=== PATIENT | male | born 1965 | race Caucasian/White ===

== ENCOUNTER 2020-05-18 11:03 | Inpatient (IN) ==
[2020-05-18] MEDS ORDERED: NS 0.9% 1000 ml BAG 1,000 ML IV ONE (11:57)
[2020-05-18 12:06] LABS: ABS Basophils 0.1 10^3/ul (0-0.2); ABS Eosinophils 0.3 10^3/ul (0-0.6); ABS Lymphocytes 0.4 10^3/ul (1.0-4.8); ABS Monocytes 0.5 10^3/ul (0-0.8); Hematocrit 28 % (42-52); Hemoglobin 8.3 g/dL (14.0-18.0); Mean Corpuscular HGB Conc 30 g/dL (31-36); Mean Corpuscular Hemoglobin 26 pg (27-31); Mean Corpuscular Volume 84 fL (80-94); Mean Platelet Volume 7.6 fL (7.4-10.4); Nucleated Red Blood Cells % 0.2; Platelet Count 388 10^3/uL (150-450); Red Blood Count 3.27 10^6 /uL (4.18-5.48); Red Cell Distribution Width 21 % (10-15); White Blood Count 7.4 10^3/uL (3.5-10.8)
[2020-05-18 12:17] LABS: Albumin 3.6 g/dL (3.2-5.2); Albumin/Globulin Ratio 1.1 (1-3); Calcium 8.1 mg/dL (8.6-10.3); EGFR African American 18.3 (>60); EGFR Non-African American 15.1 (>60); Globulin 3.3 g/dL (2-4); Potassium 4.3 mmol/L (3.5-5.0); Total Bilirubin 1.1 mg/dL (0.2-1.0); Total Protein 6.9 g/dL (6.4-8.9)
[2020-05-18 12:21] LABS: INR 1.6 (0.82-1.09)
[2020-05-18 12:40] LABS: BUN/Creatinine Ratio 35.9 (8-20)
[2020-05-18] MEDS ORDERED: Lactated Ringers 1000 ml BAG 1,000 ML IV ONE (13:08)
[2020-05-18 14:57] LABS: Digoxin 1.3 ng/ml (0.8-2.0)
[2020-05-18] MEDS: cefTRIAXone 1 gm/50 mL NS BAG 1 GM/50 ML BAG IVPB SCH (17:09)
[2020-05-18] MEDS: Nystatin TOP POWDER 15 GM BTL TOPICAL SCH ×2 (17:52→21:25)
[2020-05-18 17:54] LABS: Hematocrit 27 % (42-52); Hemoglobin 8.2 g/dL (14.0-18.0)
[2020-05-18 18:05] LABS: Calcium 7.9 mg/dL (8.6-10.3); EGFR African American 18.5 (>60); EGFR Non-African American 15.3 (>60); Potassium 4.2 mmol/L (3.5-5.0)
[2020-05-18] MEDS ORDERED: Dextrose 50% Syringe 50 ml 25 GM/50 ML SYRINGE IV PUSH PRN (18:09)
[2020-05-18 18:30] LABS: BUN/Creatinine Ratio 33.8 (8-20)
[2020-05-18 19:33] LABS: TSH Ultra Thyroid Stim Horm 1.4 mcIU/mL (0.34-5.60)
[2020-05-18] MEDS: Pantoprazole VIAL 40 MG VIAL IV SCH (22:53)
[2020-05-18 23:31] LABS: Urine Appearance Turbid; Urine Bilirubin Negative (Negative); Urine Blood 2+ (Negative); Urine Color Amber; Urine Glucose Negative (Negative); Urine Ketones Negative (Negative); Urine Nitrite Positive (Negative); Urine Protein 2+(100 mg/dL) (Negative); Urine Specific Gravity 1.012 (1.002-1.030); Urine Urobilinogen Negative (Negative)
[2020-05-18 23:37] LABS: Urine Bacteria Absent (Absent); Urine Red Blood Cell 1+(3-5/hpf) (Absent); Urine White Blood Cell 3+(>20/hpf) (Absent)
[2020-05-19] MEDS ORDERED: NS 0.9% 500 ml BAG 500 ML IV ONE (03:21)
[2020-05-19 05:01] LABS: ABS Basophils 0.1 10^3/ul (0-0.2); ABS Eosinophils 0.4 10^3/ul (0-0.6); ABS Lymphocytes 0.5 10^3/ul (1.0-4.8); ABS Monocytes 0.5 10^3/ul (0-0.8); ABS Neutrophils 6.5 10^3/ul (1.5-7.7); Hematocrit 24 % (42-52); Hemoglobin 7.6 g/dL (14.0-18.0); Lymphocyte % 5.8 %; Mean Corpuscular HGB Conc 31 g/dL (31-36); Mean Corpuscular Hemoglobin 26 pg (27-31); Mean Corpuscular Volume 84 fL (80-94); Mean Platelet Volume 7.3 fL (7.4-10.4); Platelet Count 309 10^3/uL (150-450); Red Blood Count 2.91 10^6 /uL (4.18-5.48); Red Cell Distribution Width 21 % (10-15); White Blood Count 7.9 10^3/uL (3.5-10.8)
[2020-05-19 05:21] LABS: AST 12 U/L (13-39); Albumin 3.2 g/dL (3.2-5.2); Albumin/Globulin Ratio 1.1 (1-3); Alkaline Phosphatase 87 U/L (34-104); Anion Gap 11 mmol/L (2-11); CO2 Carbon Dioxide 26 mmol/L (22-32); Calcium 7.4 mg/dL (8.6-10.3); Chloride 103 mmol/L (101-111); EGFR African American 19.7 (>60); EGFR Non-African American 16.3 (>60); Globulin 2.9 g/dL (2-4); Glucose 83 mg/dL (70-100); Magnesium 2.8 mg/dL (1.9-2.7); Phosphorus 6.4 mg/dL (2.5-5.0); Potassium 3.9 mmol/L (3.5-5.0); Sodium 140 mmol/L (135-145); Total Protein 6.1 g/dL (6.4-8.9)
[2020-05-19] MEDS: cefTRIAXone 1 gm/50 mL NS BAG 1 GM/50 ML BAG IVPB SCH ×2 (05:25→17:21)
[2020-05-19 05:39] LABS: BUN/Creatinine Ratio 36.4 (8-20); Blood Urea Nitrogen 141 mg/dL (6-24)
[2020-05-19 05:57] LABS: ALT 15 U/L (7-52)
[2020-05-19] MEDS: Nystatin TOP POWDER 15 GM BTL TOPICAL SCH ×3 (08:00→21:54)
[2020-05-19] MEDS: Pantoprazole VIAL 40 MG VIAL IV SCH (08:00)
[2020-05-19 10:03] LABS: Troponin I 0.03 ng/mL (<0.03)
[2020-05-20] MEDS: cefTRIAXone 1 gm/50 mL NS BAG 1 GM/50 ML BAG IVPB SCH (05:30)
[2020-05-20] MEDS: Nystatin TOP POWDER 15 GM BTL TOPICAL SCH ×3 (08:18→21:11)
[2020-05-20] MEDS: Pantoprazole VIAL 40 MG VIAL IV SCH (08:20)
[2020-05-20] MEDS: Insulin GLARGINE 100 un/ml 10 ml VIAL SUBCUT SCH (08:40)
[2020-05-20] MEDS: Oxymetazoline 0.05% NASAL SPR 15 ML BTL LEFT NARE PRN (08:45)
[2020-05-20 08:54] LABS: Hematocrit 26 % (42-52); Hemoglobin 7.7 g/dL (14.0-18.0); Mean Corpuscular HGB Conc 29 g/dL (31-36); Mean Corpuscular Hemoglobin 25 pg (27-31); Mean Corpuscular Volume 85 fL (80-94); Mean Platelet Volume 7.6 fL (7.4-10.4); Platelet Count 315 10^3/uL (150-450); Red Blood Count 3.07 10^6 /uL (4.18-5.48); Red Cell Distribution Width 21 % (10-15); White Blood Count 7.7 10^3/uL (3.5-10.8)
[2020-05-20 09:02] LABS: Anion Gap 12 mmol/L (2-11); BUN/Creatinine Ratio 35.2 (8-20); Blood Urea Nitrogen 128 mg/dL (6-24); CO2 Carbon Dioxide 26 mmol/L (22-32); Calcium 7.7 mg/dL (8.6-10.3); Chloride 101 mmol/L (101-111); EGFR African American 21.1 (>60); EGFR Non-African American 17.5 (>60); Glucose 105 mg/dL (70-100); Magnesium 2.8 mg/dL (1.9-2.7); Phosphorus 6.1 mg/dL (2.5-5.0); Sodium 139 mmol/L (135-145)
[2020-05-20 09:25] LABS: Troponin I 0.03 ng/mL (<0.03)
[2020-05-20] MEDS: Saline NASAL SPRAY 0.65% BTL BOTH NARES SCH ×4 (10:37→21:12)
[2020-05-20] MEDS ORDERED: Zosyn per Pharmacy NOTE FOLLOW UP SCH (12:00)
[2020-05-20] MEDS ORDERED: Piperacillin/Tazobac ADVAN 3.375 GM in NS 0.9% 100 ml BAG 100 ML IV ONE (12:45)
[2020-05-20] MEDS: ZOSYN 3.375 GM Q8H per EXTENDED INFUSION IV SCH (18:15)
[2020-05-21] MEDS: Saline NASAL SPRAY 0.65% BTL BOTH NARES SCH ×6 (01:41→22:42)
[2020-05-21] MEDS: ZOSYN 3.375 GM Q8H per EXTENDED INFUSION IV SCH ×3 (01:42→17:17)
[2020-05-21] MEDS: Insulin GLARGINE 100 un/ml 10 ml VIAL SUBCUT SCH (09:22)
[2020-05-21 09:24] LABS: % Iron Saturation 13 % (15-55); Iron 26 ug/dL (50-212); Total Iron Binding Capacity 197 mcg/dL (250-450); Transferrin 141 mg/dL (203-362); Unsaturated Iron Binding < 182 ug/dL
[2020-05-21] MEDS: Nystatin TOP POWDER 15 GM BTL TOPICAL SCH ×3 (09:41→22:37)
[2020-05-22] MEDS: Saline NASAL SPRAY 0.65% BTL BOTH NARES SCH ×6 (02:00→20:48)
[2020-05-22 05:22] LABS: Calcium 7.9 mg/dL (8.6-10.3); EGFR Non-African American 16.5 (>60); Magnesium 2.8 mg/dL (1.9-2.7)
[2020-05-22] MEDS: Insulin GLARGINE 100 un/ml 10 ml VIAL SUBCUT SCH (08:45)
[2020-05-22] MEDS: Nystatin TOP POWDER 15 GM BTL TOPICAL SCH ×3 (08:46→20:48)
[2020-05-22] MEDS ORDERED: ZOSYN 3.375 GM x ONE DOSE over 30 miuntes IV (13:00)
[2020-05-22] MEDS ORDERED: Zosyn per Pharmacy NOTE FOLLOW UP SCH (13:00)
[2020-05-22] MEDS: ZOSYN 3.375 GM Q8H per EXTENDED INFUSION IV SCH (17:58)
[2020-05-22] MEDS ORDERED: Heparin 5000 UNITS/ML 1 mL VIAL IV SCH (19:00)
[2020-05-22] MEDS ORDERED: Warfarin per PHARMACY **NOTE FOLLOW UP SCH (19:00)
[2020-05-22] MEDS: Heparin DRIP 25,000 UNITS BAG 25,000 UNITS/500 ML BAG IV SCH (19:51)
[2020-05-23] MEDS: Saline NASAL SPRAY 0.65% BTL BOTH NARES SCH ×6 (01:46→20:59)
[2020-05-23] MEDS: ZOSYN 3.375 GM Q8H per EXTENDED INFUSION IV SCH ×3 (01:57→20:34)
[2020-05-23] MEDS: Insulin GLARGINE 100 un/ml 10 ml VIAL SUBCUT SCH (08:15)
[2020-05-23 08:34] LABS: ABS Basophils 0.1 10^3/ul (0-0.2); ABS Eosinophils 0.6 10^3/ul (0-0.6); ABS Lymphocytes 0.5 10^3/ul (1.0-4.8); ABS Monocytes 0.4 10^3/ul (0-0.8); ABS Neutrophils 5.4 10^3/ul (1.5-7.7); Eosinophil % 8.4 %; Hematocrit 24 % (42-52); Hemoglobin 7.5 g/dL (14.0-18.0); Lymphocyte % 7.1 %; Mean Corpuscular HGB Conc 31 g/dL (31-36); Mean Corpuscular Hemoglobin 26 pg (27-31); Mean Corpuscular Volume 84 fL (80-94); Mean Platelet Volume 7.7 fL (7.4-10.4); Nucleated Red Blood Cells % 0.1; Platelet Count 302 10^3/uL (150-450); Red Blood Count 2.91 10^6 /uL (4.18-5.48); Red Cell Distribution Width 21 % (10-15)
[2020-05-23 08:39] LABS: Activated Partial Thrombo Time 99.2 seconds (26.0-38.0); INR 1.49 (0.82-1.09)
[2020-05-23 08:48] LABS: BUN/Creatinine Ratio 32.5 (8-20); Calcium 7.9 mg/dL (8.6-10.3); EGFR African American 20.8 (>60); EGFR Non-African American 17.2 (>60); Potassium 3.8 mmol/L (3.5-5.0)
[2020-05-23] MEDS: Heparin DRIP 25,000 UNITS BAG 25,000 UNITS/500 ML BAG IV SCH (09:42)
[2020-05-23] MEDS: Nystatin TOP POWDER 15 GM BTL TOPICAL SCH ×3 (09:57→20:59)
[2020-05-23] MEDS ORDERED: Warfarin - No Order Today **NOTE FOLLOW UP ONE (16:00)
[2020-05-23] MEDS ORDERED: Bupivacaine 0.5% SDV PF 30ML VIAL ONE (16:27)
[2020-05-23] MEDS ORDERED: Albumin Human 25% 25 GM/100 ML BTL IV PRN (16:35)
[2020-05-23] MEDS ORDERED: Midazolam 2 mg/2 ml VIAL 1 mg/ml 2 ml VIAL (2 mg) ONE (16:39)
[2020-05-23] MEDS ORDERED: fentaNYL 100 mcg/2 ml 50 MCG/ML VIAL ONE (16:39)
[2020-05-23] MEDS ORDERED: Heparin 1,000 UNIT/ML 10 ml (10,000 UNITS) CATHLAB/DIALYSIS DIALYSIS ONE (17:00)
[2020-05-23] MEDS: Heparin 1,000 UNIT/ML 10 ml (10,000 UNITS) CATHLAB/DIALYSIS DIALYSIS ONE (18:37)
[2020-05-23] MEDS: Warfarin DAILY REMINDER **NOTE FOLLOW UP SCH (19:20)
[2020-05-23] MEDS: Calcium Carb (TUMS) 500 mg CHEW TAB PO SCH (23:12)
[2020-05-24] MEDS: Saline NASAL SPRAY 0.65% BTL BOTH NARES SCH ×6 (00:30→21:59)
[2020-05-24] MEDS: ZOSYN 3.375 GM Q8H per EXTENDED INFUSION IV SCH ×3 (01:04→18:05)
[2020-05-24 06:10] LABS: ABS Basophils 0.1 10^3/ul (0-0.2); ABS Eosinophils 0.5 10^3/ul (0-0.6); ABS Lymphocytes 0.4 10^3/ul (1.0-4.8); ABS Monocytes 0.4 10^3/ul (0-0.8); ABS Neutrophils 4.5 10^3/ul (1.5-7.7); Eosinophil % 8.9 %; Hematocrit 26 % (42-52); Hemoglobin 7.7 g/dL (14.0-18.0); Lymphocyte % 6.9 %; Mean Corpuscular HGB Conc 30 g/dL (31-36); Mean Corpuscular Hemoglobin 26 pg (27-31); Mean Corpuscular Volume 85 fL (80-94); Platelet Count 309 10^3/uL (150-450); Red Cell Distribution Width 21 % (10-15)
[2020-05-24 06:24] LABS: BUN/Creatinine Ratio 29.5 (8-20); Calcium 7.9 mg/dL (8.6-10.3); EGFR African American 21.5 (>60); EGFR Non-African American 17.7 (>60); Potassium 3.8 mmol/L (3.5-5.0)
[2020-05-24 06:27] LABS: INR 1.44 (0.82-1.09)
[2020-05-24] MEDS: Calcium Carb (TUMS) 500 mg CHEW TAB PO SCH ×3 (08:48→21:58)
[2020-05-24] MEDS ORDERED: NS 0.9% 250 ml 250 ML IVPB PRN (08:49)
[2020-05-24] MEDS: Insulin GLARGINE 100 un/ml 10 ml VIAL SUBCUT SCH (08:49)
[2020-05-24] MEDS: Nystatin TOP POWDER 15 GM BTL TOPICAL SCH ×3 (08:50→21:59)
[2020-05-24] MEDS ORDERED: Albumin Human 25% 25 GM/100 ML IV PRN (08:52)
[2020-05-24] MEDS ORDERED: Heparin 1,000 UNIT/ML 10 ml (10,000 UNITS) CATHLAB/DIALYSIS DIALYSIS ONE (09:00)
[2020-05-24] MEDS ORDERED: Heparin 5000 UNITS/ML 1 mL VIAL IV SCH (10:00)
[2020-05-24] MEDS ORDERED: Perflutren Lipid Microsphere 3 ML VIAL ONE (10:50)
[2020-05-24 12:25] LABS: ABS Basophils 0.1 10^3/ul (0-0.2); ABS Eosinophils 0.5 10^3/ul (0-0.6); ABS Lymphocytes 0.3 10^3/ul (1.0-4.8); ABS Monocytes 0.4 10^3/ul (0-0.8); ABS Neutrophils 4.6 10^3/ul (1.5-7.7); Eosinophil % 8.2 %; Hematocrit 26 % (42-52); Hemoglobin 7.7 g/dL (14.0-18.0); Lymphocyte % 5.4 %; Mean Corpuscular HGB Conc 30 g/dL (31-36); Mean Corpuscular Hemoglobin 26 pg (27-31); Mean Corpuscular Volume 85 fL (80-94); Mean Platelet Volume 7.6 fL (7.4-10.4); Platelet Count 316 10^3/uL (150-450); Red Blood Count 3.02 10^6 /uL (4.18-5.48); Red Cell Distribution Width 21 % (10-15)
[2020-05-24] MEDS: Heparin DRIP 25,000 UNITS BAG 25,000 UNITS/500 ML BAG IV SCH (12:40)
[2020-05-24 12:46] LABS: EGFR African American 26.4 (>60); EGFR Non-African American 21.8 (>60)
[2020-05-24] MEDS: Warfarin DAILY REMINDER **NOTE FOLLOW UP SCH (17:12)
[2020-05-25] MEDS: Heparin DRIP 25,000 UNITS BAG 25,000 UNITS/500 ML BAG IV SCH ×2 (00:34→13:36)
[2020-05-25] MEDS: Saline NASAL SPRAY 0.65% BTL BOTH NARES SCH ×6 (02:29→22:34)
[2020-05-25] MEDS: ZOSYN 3.375 GM Q8H per EXTENDED INFUSION IV SCH ×3 (02:29→17:55)
[2020-05-25 09:04] LABS: ABS Basophils 0.1 10^3/ul (0-0.2); ABS Eosinophils 0.6 10^3/ul (0-0.6); ABS Lymphocytes 0.4 10^3/ul (1.0-4.8); ABS Monocytes 0.5 10^3/ul (0-0.8); ABS Neutrophils 5.5 10^3/ul (1.5-7.7); Eosinophil % 8.4 %; Hematocrit 26 % (42-52); Hemoglobin 7.7 g/dL (14.0-18.0); Lymphocyte % 6.2 %; Mean Corpuscular HGB Conc 30 g/dL (31-36); Mean Corpuscular Hemoglobin 25 pg (27-31); Mean Corpuscular Volume 85 fL (80-94); Mean Platelet Volume 7.6 fL (7.4-10.4); Platelet Count 326 10^3/uL (150-450); Red Blood Count 3.02 10^6 /uL (4.18-5.48); Red Cell Distribution Width 21 % (10-15); White Blood Count 7.1 10^3/uL (3.5-10.8)
[2020-05-25] MEDS: Calcium Carb (TUMS) 500 mg CHEW TAB PO SCH ×3 (09:09→22:30)
[2020-05-25] MEDS: Insulin GLARGINE 100 un/ml 10 ml VIAL SUBCUT SCH (09:09)
[2020-05-25] MEDS: Nystatin TOP POWDER 15 GM BTL TOPICAL SCH ×3 (09:10→22:34)
[2020-05-25] MEDS: Oxymetazoline 0.05% NASAL SPR 15 ML BTL LEFT NARE PRN (09:10)
[2020-05-25 09:12] LABS: Activated Partial Thrombo Time 69.1 seconds (26.0-38.0); INR 1.52 (0.82-1.09)
[2020-05-25 09:19] LABS: BUN/Creatinine Ratio 25.6 (8-20); Calcium 8.1 mg/dL (8.6-10.3); EGFR Non-African American 18.2 (>60); Potassium 3.9 mmol/L (3.5-5.0)
[2020-05-25] MEDS ORDERED: Heparin 1,000 UNIT/ML 10 ml (10,000 UNITS) CATHLAB/DIALYSIS DIALYSIS ONE (11:00)
[2020-05-25] MEDS: Albumin Human 25% 25 GM/100 ML IV PRN ×2 (12:10→13:26)
[2020-05-25 13:58] LABS: % Iron Saturation 12 % (15-55); Iron 24 ug/dL (50-212); Total Iron Binding Capacity 193 mcg/dL (250-450); Transferrin 138 mg/dL (203-362); Unsaturated Iron Binding < 178 ug/dL
[2020-05-25 16:11] LABS: Hepatitis B Surface Antigen Nonreactive (Nonreactive)
[2020-05-25 16:28] LABS: Hepatitis B Surface Ab Not Immune (Immune)
[2020-05-25] MEDS: Warfarin DAILY REMINDER **NOTE FOLLOW UP SCH (18:01)
[2020-05-25] MEDS: Bumetanide IV 0.25 MG/ML 4 ml VIAL (1 mg) SLOW PUSH SCH (22:31)
[2020-05-26] MEDS: Heparin DRIP 25,000 UNITS BAG 25,000 UNITS/500 ML BAG IV SCH (02:13)
[2020-05-26] MEDS: Saline NASAL SPRAY 0.65% BTL BOTH NARES SCH ×6 (02:15→23:56)
[2020-05-26 05:52] LABS: ABS Basophils 0.1 10^3/ul (0-0.2); ABS Eosinophils 0.6 10^3/ul (0-0.6); ABS Lymphocytes 0.6 10^3/ul (1.0-4.8); ABS Monocytes 0.5 10^3/ul (0-0.8); ABS Neutrophils 6.1 10^3/ul (1.5-7.7); Eosinophil % 7.3 %; Hematocrit 24 % (42-52); Hemoglobin 7.3 g/dL (14.0-18.0); Lymphocyte % 7.2 %; Mean Corpuscular HGB Conc 30 g/dL (31-36); Mean Corpuscular Hemoglobin 25 pg (27-31); Mean Corpuscular Volume 84 fL (80-94); Mean Platelet Volume 7.2 fL (7.4-10.4); Nucleated Red Blood Cells % 0.1; Platelet Count 322 10^3/uL (150-450); Red Blood Count 2.88 10^6 /uL (4.18-5.48); Red Cell Distribution Width 21 % (10-15); White Blood Count 7.9 10^3/uL (3.5-10.8)
[2020-05-26 06:01] LABS: Activated Partial Thrombo Time 66.4 seconds (26.0-38.0); INR 1.7 (0.82-1.09)
[2020-05-26 06:10] LABS: EGFR African American 24.9 (>60); EGFR Non-African American 20.6 (>60)
[2020-05-26] MEDS: Calcium Carb (TUMS) 500 mg CHEW TAB PO SCH ×3 (08:33→22:07)
[2020-05-26] MEDS: Insulin GLARGINE 100 un/ml 10 ml VIAL SUBCUT SCH (08:40)
[2020-05-26] MEDS: Nystatin TOP POWDER 15 GM BTL TOPICAL SCH ×3 (08:41→23:30)
[2020-05-26] MEDS: Iron Sucrose 200 MG in NS 0.9% 100 ml BAG 100 ML IVPB SCH (08:47)
[2020-05-26] MEDS: Bumetanide IV 0.25 MG/ML 4 ml VIAL (1 mg) SLOW PUSH SCH ×2 (12:24→22:39)
[2020-05-26] MEDS ORDERED: Albumin Human 25% 25 GM/100 ML BTL IV PRN (16:41)
[2020-05-26] MEDS ORDERED: Heparin 1,000 UNIT/ML 10 ml (10,000 UNITS) CATHLAB/DIALYSIS DIALYSIS ONE (17:00)
[2020-05-26] MEDS: Warfarin DAILY REMINDER **NOTE FOLLOW UP SCH (22:08)
[2020-05-27] MEDS: Heparin DRIP 25,000 UNITS BAG 25,000 UNITS/500 ML BAG IV SCH ×2 (03:06→18:39)
[2020-05-27] MEDS: Saline NASAL SPRAY 0.65% BTL BOTH NARES SCH ×6 (03:39→20:30)
[2020-05-27 05:35] LABS: ABS Basophils 0.2 10^3/ul (0-0.2); ABS Eosinophils 0.5 10^3/ul (0-0.6); ABS Lymphocytes 0.6 10^3/ul (1.0-4.8); ABS Monocytes 0.5 10^3/ul (0-0.8); ABS Neutrophils 5.4 10^3/ul (1.5-7.7); Hematocrit 25 % (42-52); Hemoglobin 7.7 g/dL (14.0-18.0); Lymphocyte % 8.3 %; Mean Corpuscular HGB Conc 30 g/dL (31-36); Mean Corpuscular Hemoglobin 26 pg (27-31); Mean Corpuscular Volume 85 fL (80-94); Mean Platelet Volume 7.7 fL (7.4-10.4); Platelet Count 323 10^3/uL (150-450); Red Blood Count 2.98 10^6 /uL (4.18-5.48); Red Cell Distribution Width 22 % (10-15); White Blood Count 7.2 10^3/uL (3.5-10.8)
[2020-05-27 05:48] LABS: Activated Partial Thrombo Time 66.7 seconds (26.0-38.0); INR 1.89 (0.82-1.09)
[2020-05-27] MEDS: Calcium Carb (TUMS) 500 mg CHEW TAB PO SCH ×3 (08:14→20:29)
[2020-05-27] MEDS: Insulin GLARGINE 100 un/ml 10 ml VIAL SUBCUT SCH (08:15)
[2020-05-27] MEDS: Bumetanide IV 0.25 MG/ML 4 ml VIAL (1 mg) SLOW PUSH SCH ×2 (08:19→20:30)
[2020-05-27] MEDS: Nystatin TOP POWDER 15 GM BTL TOPICAL SCH ×3 (08:21→20:32)
[2020-05-27] MEDS: Iron Sucrose 200 MG in NS 0.9% 100 ml BAG 100 ML IVPB SCH (08:56)
[2020-05-27] MEDS ORDERED: Ondansetron 4 mg VIAL 2 MG/ML 2 ml VIAL IV PRN (09:00)
[2020-05-27] MEDS ORDERED: Albumin Human 25% 25 GM/100 ML BTL IV PRN (13:15)
[2020-05-27] MEDS ORDERED: NS 0.9% 250 ml 250 ML IVPB PRN (13:18)
[2020-05-27] MEDS ORDERED: Heparin 1,000 UNIT/ML 10 ml (10,000 UNITS) CATHLAB/DIALYSIS IV ONE (14:00)
[2020-05-27] MEDS: Warfarin DAILY REMINDER **NOTE FOLLOW UP SCH (17:00)
[2020-05-28] MEDS: Saline NASAL SPRAY 0.65% BTL BOTH NARES SCH ×6 (01:30→22:57)
[2020-05-28 06:15] LABS: ABS Basophils 0.2 10^3/ul (0-0.2); ABS Eosinophils 0.5 10^3/ul (0-0.6); ABS Lymphocytes 0.6 10^3/ul (1.0-4.8); ABS Monocytes 0.6 10^3/ul (0-0.8); ABS Neutrophils 6.2 10^3/ul (1.5-7.7); Eosinophil % 6.3 %; Hematocrit 26 % (42-52); Hemoglobin 7.9 g/dL (14.0-18.0); Lymphocyte % 7.7 %; Mean Corpuscular HGB Conc 31 g/dL (31-36); Mean Corpuscular Hemoglobin 26 pg (27-31); Mean Corpuscular Volume 84 fL (80-94); Mean Platelet Volume 7.5 fL (7.4-10.4); Nucleated Red Blood Cells % 0.1; Platelet Count 349 10^3/uL (150-450); Red Blood Count 3.08 10^6 /uL (4.18-5.48); Red Cell Distribution Width 22 % (10-15); White Blood Count 8.1 10^3/uL (3.5-10.8)
[2020-05-28 06:32] LABS: EGFR African American 28.5 (>60); EGFR Non-African American 23.5 (>60)
[2020-05-28] MEDS: Calcium Carb (TUMS) 500 mg CHEW TAB PO SCH ×3 (08:03→20:04)
[2020-05-28] MEDS: Insulin GLARGINE 100 un/ml 10 ml VIAL SUBCUT SCH (08:04)
[2020-05-28] MEDS: Heparin DRIP 25,000 UNITS BAG 25,000 UNITS/500 ML BAG IV SCH ×2 (08:06→21:19)
[2020-05-28] MEDS: Nystatin TOP POWDER 15 GM BTL TOPICAL SCH ×3 (08:13→22:05)
[2020-05-28] MEDS: Bumetanide IV 0.25 MG/ML 4 ml VIAL (1 mg) SLOW PUSH SCH ×2 (09:01→20:04)
[2020-05-28] MEDS: Iron Sucrose 200 MG in NS 0.9% 100 ml BAG 100 ML IVPB SCH (09:01)
[2020-05-28 10:46] LABS: INR 2.4 (0.82-1.09)
[2020-05-28] MEDS: Warfarin DAILY REMINDER **NOTE FOLLOW UP SCH (16:37)
[2020-05-29] MEDS: Saline NASAL SPRAY 0.65% BTL BOTH NARES SCH ×6 (04:56→21:07)
[2020-05-29 05:36] LABS: ABS Basophils 0.1 10^3/ul (0-0.2); ABS Eosinophils 0.5 10^3/ul (0-0.6); ABS Lymphocytes 0.8 10^3/ul (1.0-4.8); ABS Monocytes 0.5 10^3/ul (0-0.8); ABS Neutrophils 6.8 10^3/ul (1.5-7.7); Eosinophil % 6.1 %; Hematocrit 27 % (42-52); Lymphocyte % 8.8 %; Mean Corpuscular HGB Conc 30 g/dL (31-36); Mean Corpuscular Hemoglobin 26 pg (27-31); Mean Corpuscular Volume 85 fL (80-94); Mean Platelet Volume 7.9 fL (7.4-10.4); Nucleated Red Blood Cells % 0.1; Platelet Count 386 10^3/uL (150-450); Red Blood Count 3.13 10^6 /uL (4.18-5.48); Red Cell Distribution Width 21 % (10-15); White Blood Count 8.7 10^3/uL (3.5-10.8)
[2020-05-29 05:41] LABS: INR 2.72 (0.82-1.09)
[2020-05-29] MEDS: Insulin GLARGINE 100 un/ml 10 ml VIAL SUBCUT SCH (08:09)
[2020-05-29] MEDS: Nystatin TOP POWDER 15 GM BTL TOPICAL SCH ×3 (08:10→21:07)
[2020-05-29] MEDS: Bumetanide IV 0.25 MG/ML 4 ml VIAL (1 mg) SLOW PUSH SCH ×2 (08:10→21:05)
[2020-05-29] MEDS: Calcium Carb (TUMS) 500 mg CHEW TAB PO SCH ×3 (08:10→21:06)
[2020-05-29] MEDS: Iron Sucrose 200 MG in NS 0.9% 100 ml BAG 100 ML IVPB SCH (10:06)
[2020-05-29] MEDS: Warfarin DAILY REMINDER **NOTE FOLLOW UP SCH (16:15)
[2020-05-30] MEDS: Saline NASAL SPRAY 0.65% BTL BOTH NARES SCH ×6 (03:36→21:02)
[2020-05-30 07:02] LABS: EGFR African American 22.9 (>60); EGFR Non-African American 18.9 (>60)
[2020-05-30 07:06] LABS: INR 2.77 (0.82-1.09)
[2020-05-30] MEDS: Insulin GLARGINE 100 un/ml 10 ml VIAL SUBCUT SCH (09:18)
[2020-05-30] MEDS: Calcium Carb (TUMS) 500 mg CHEW TAB PO SCH ×3 (10:38→21:01)
[2020-05-30] MEDS: Iron Sucrose 200 MG in NS 0.9% 100 ml BAG 100 ML IVPB SCH (10:39)
[2020-05-30] MEDS: Nystatin TOP POWDER 15 GM BTL TOPICAL SCH ×3 (10:51→21:03)
[2020-05-30] MEDS: Bumetanide IV 0.25 MG/ML 4 ml VIAL (1 mg) SLOW PUSH SCH ×2 (11:17→21:15)
[2020-05-30] MEDS ORDERED: Albumin Human 25% 25 GM/100 ML IV PRN ×2 (12:43→14:07)
[2020-05-30] MEDS ORDERED: Heparin 1,000 UNIT/ML 10 ml (10,000 UNITS) CATHLAB/DIALYSIS IV ONE (13:00)
[2020-05-30] MEDS: Heparin 1,000 UNIT/ML 10 ml (10,000 UNITS) CATHLAB/DIALYSIS DIALYSIS ONE (16:26)
[2020-05-30] MEDS: Warfarin DAILY REMINDER **NOTE FOLLOW UP SCH (18:08)
[2020-05-31] MEDS: Saline NASAL SPRAY 0.65% BTL BOTH NARES SCH ×6 (02:54→20:47)
[2020-05-31 06:56] LABS: INR 2.55 (0.82-1.09)
[2020-05-31] MEDS ORDERED: Albumin Human 25% 25 GM/100 ML IV PRN (06:58)
[2020-05-31] MEDS ORDERED: Heparin 1,000 UNIT/ML 10 ml (10,000 UNITS) CATHLAB/DIALYSIS DIALYSIS ONE (07:00)
[2020-05-31 07:08] LABS: BUN/Creatinine Ratio 12.4 (8-20); Calcium 8.6 mg/dL (8.6-10.3); EGFR Non-African American 20.6 (>60); Phosphorus 4.8 mg/dL (2.5-5.0); Potassium 4.3 mmol/L (3.5-5.0)
[2020-05-31] MEDS: Bumetanide IV 0.25 MG/ML 4 ml VIAL (1 mg) SLOW PUSH SCH (08:08)
[2020-05-31] MEDS: Calcium Carb (TUMS) 500 mg CHEW TAB PO SCH ×3 (08:08→20:47)
[2020-05-31] MEDS: Insulin GLARGINE 100 un/ml 10 ml VIAL SUBCUT SCH (08:10)
[2020-05-31] MEDS: Heparin 1,000 UNIT/ML 10 ml (10,000 UNITS) CATHLAB/DIALYSIS DIALYSIS ONE (11:43)
[2020-05-31] MEDS: Nystatin TOP POWDER 15 GM BTL TOPICAL SCH ×2 (12:43→13:27)
[2020-05-31] MEDS: Warfarin DAILY REMINDER **NOTE FOLLOW UP SCH (18:03)
[2020-06-01] MEDS: Saline NASAL SPRAY 0.65% BTL BOTH NARES SCH ×5 (01:52→17:43)
[2020-06-01 05:21] LABS: INR 2.48 (0.82-1.09)
[2020-06-01] MEDS: Calcium Carb (TUMS) 500 mg CHEW TAB PO SCH ×2 (07:54→13:02)
[2020-06-01] MEDS: Insulin GLARGINE 100 un/ml 10 ml VIAL SUBCUT SCH (08:40)
[2020-06-01] MEDS ORDERED: Albumin Human 25% 25 GM/100 ML IV PRN (11:42)
[2020-06-01] MEDS: Heparin 1,000 UNIT/ML 10 ml (10,000 UNITS) CATHLAB/DIALYSIS DIALYSIS ONE ×2 (13:01→16:37)
[2020-06-01 16:38] VITALS: BP 106/32
[2020-06-01] MEDS: Warfarin DAILY REMINDER **NOTE FOLLOW UP SCH (17:43)
== END 2020-06-01 17:45 | DRG 682 ==
LOC: ED 11:03 → ICU 12:59 → MEDTELE 05-20 13:19
PROVIDERS: ADMIT Internal Medicine; ATTEND Internal Medicine

== ENCOUNTER 2020-06-17 11:16 | Inpatient (IN) ==
[2020-06-17 11:49] LABS: ABS Basophils 0.2 10^3/ul (0-0.2); ABS Eosinophils 0.1 10^3/ul (0-0.6); ABS Lymphocytes 0.8 10^3/ul (1.0-4.8); ABS Monocytes 0.7 10^3/ul (0-0.8); ABS Neutrophils 9.6 10^3/ul (1.5-7.7); ABS Nucleated RBC 0.1 10^3/ul; Hematocrit 28 % (42-52); Hemoglobin 8.4 g/dL (14.0-18.0); Mean Corpuscular HGB Conc 31 g/dL (31-36); Mean Corpuscular Hemoglobin 26 pg (27-31); Mean Corpuscular Volume 86 fL (80-94); Mean Platelet Volume 7.1 fL (7.4-10.4); Nucleated Red Blood Cells % 0.6; Platelet Count 425 10^3/uL (150-450); Red Blood Count 3.21 10^6 /uL (4.18-5.48); Red Cell Distribution Width 21 % (10-15); White Blood Count 11.4 10^3/uL (3.5-10.8)
[2020-06-17 12:12] LABS: ALT 10 U/L (7-52); AST 20 U/L (13-39); Albumin 3.6 g/dL (3.2-5.2); Alkaline Phosphatase 83 U/L (34-104); Anion Gap 8 mmol/L (2-11); Blood Urea Nitrogen 27 mg/dL (6-24); CO2 Carbon Dioxide 32 mmol/L (22-32); Calcium 8.7 mg/dL (8.6-10.3); Chloride 92 mmol/L (101-111); EGFR African American 24.6 (>60); EGFR Non-African American 20.3 (>60); Globulin 3.7 g/dL (2-4); Glucose 214 mg/dL (70-100); Potassium 4.3 mmol/L (3.5-5.0); Sodium 132 mmol/L (135-145); Total Protein 7.3 g/dL (6.4-8.9)
[2020-06-17] MEDS ORDERED: oxyCODONE/Acetamin 5/325 mg TAB PO PRN (14:05)
[2020-06-17 15:15] LABS: INR 4.07 (0.82-1.09)
[2020-06-17] MEDS ORDERED: NON FORMULARY MED (Insulin Aspart U-100 [Novolog Flexpen U-100 Insulin] 100 unit/mL (3 mL) SUBCUT SCH (16:00)
[2020-06-17] MEDS ORDERED: Dextrose 50% Syringe 50 ml 25 GM/50 ML SYRINGE IV PUSH PRN (16:38)
[2020-06-17 17:07] LABS: Magnesium 2.1 mg/dL (1.9-2.7); Phosphorus 2.8 mg/dL (2.5-5.0)
[2020-06-17] MEDS ORDERED: NS 0.9% 500 ml BAG 500 ML IV ONE (17:36)
[2020-06-17] MEDS ORDERED: Zosyn per Pharmacy NOTE FOLLOW UP SCH (18:00)
[2020-06-17] MEDS ORDERED: ZOSYN 3.375 GM x ONE DOSE over 30 miuntes IV (18:30)
[2020-06-17] MEDS ORDERED: Norepinephrine 16MCG/ML IVPRE 4,000 MCG/250 ML BAG IV SCH ×3 (19:00→20:00)
[2020-06-17 19:10] LABS: Digoxin 1.1 ng/ml (0.8-2.0)
[2020-06-17] MEDS ORDERED: Phenylephrine IV 10 MG/ML 1 ml VIAL ONE (19:59)
[2020-06-17] MEDS: Phenylephrine INJ 50 MG in NS 0.9% IV SCH (20:25)
[2020-06-17] MEDS: Senna TAB 8.6 mg TAB PO SCH (20:55)
[2020-06-17] MEDS: Docusate LIQ 100 MG/10 ML UDC PO SCH (20:57)
[2020-06-17] MEDS: Insulin GLARGINE 100 un/ml 10 ml VIAL SUBCUT SCH (20:59)
[2020-06-17] MEDS ORDERED: Insulin GLARGINE 100 un/ml 10 ml VIAL SUBCUT SCH (21:00)
[2020-06-17 22:45] LABS: Urine Appearance Turbid; Urine Bilirubin Negative (Negative); Urine Blood 2+ (Negative); Urine Color Amber; Urine Glucose Negative (Negative); Urine Ketones Negative (Negative); Urine Nitrite Negative (Negative); Urine Protein 3+(>=500 mg/dL) (Negative); Urine Specific Gravity 1.024 (1.002-1.030); Urine Urobilinogen Negative (Negative)
[2020-06-17 22:45] LABS: Troponin I 0.46 ng/mL (<0.03)
[2020-06-17 22:52] LABS: Urine Bacteria 1+ (Absent); Urine Red Blood Cell 3+(>10/hpf) (Absent); Urine Squamous Epithelial Cell Present (Absent); Urine White Blood Cell 3+(>20/hpf) (Absent)
[2020-06-17] MEDS: Nystatin TOP POWDER 15 GM BTL TOPICAL SCH (23:08)
[2020-06-17] MEDS: ZOSYN 3.375 GM Q8H per EXTENDED INFUSION IV SCH (23:10)
[2020-06-17] MEDS: Hydrocortisone INJ 100 MG/2ML 2 ML VIAL IV SCH (23:10)
[2020-06-18] MEDS: Phenylephrine INJ 50 MG in NS 0.9% IV SCH (04:47)
[2020-06-18 05:20] LABS: ABS Eosinophils 0.1 10^3/ul (0-0.6); ABS Lymphocytes 0.3 10^3/ul (1.0-4.8); ABS Monocytes 0.4 10^3/ul (0-0.8); ABS Neutrophils 21.3 10^3/ul (1.5-7.7); ABS Nucleated RBC 0.1 10^3/ul; Eosinophil % 0.2 %; Hematocrit 30 % (42-52); Hemoglobin 9.2 g/dL (14.0-18.0); Lymphocyte % 1.4 %; Mean Corpuscular HGB Conc 30 g/dL (31-36); Mean Corpuscular Hemoglobin 26 pg (27-31); Mean Corpuscular Volume 85 fL (80-94); Mean Platelet Volume 7.1 fL (7.4-10.4); Nucleated Red Blood Cells % 0.3; Platelet Count 564 10^3/uL (150-450); Red Blood Count 3.56 10^6 /uL (4.18-5.48); Red Cell Distribution Width 21 % (10-15); White Blood Count 22.1 10^3/uL (3.5-10.8)
[2020-06-18 05:26] LABS: ALT 10 U/L (7-52); AST 16 U/L (13-39); Albumin 3.5 g/dL (3.2-5.2); Albumin/Globulin Ratio 0.9 (1-3); Alkaline Phosphatase 89 U/L (34-104); Anion Gap 10 mmol/L (2-11); Blood Urea Nitrogen 34 mg/dL (6-24); C Reactive Protein 139.75 mg/L (<8.01); CO2 Carbon Dioxide 29 mmol/L (22-32); Calcium 8.6 mg/dL (8.6-10.3); Chloride 94 mmol/L (101-111); EGFR African American 19.9 (>60); EGFR Non-African American 16.5 (>60); Globulin 3.8 g/dL (2-4); Glucose 184 mg/dL (70-100); INR 4.12 (0.82-1.09); Phosphorus 3.2 mg/dL (2.5-5.0); Potassium 4.4 mmol/L (3.5-5.0); Sodium 133 mmol/L (135-145); Total Protein 7.3 g/dL (6.4-8.9)
[2020-06-18] MEDS: Hydrocortisone INJ 100 MG/2ML 2 ML VIAL IV SCH ×3 (06:05→23:17)
[2020-06-18] MEDS: ZOSYN 3.375 GM Q8H per EXTENDED INFUSION IV SCH ×3 (07:41→23:17)
[2020-06-18 08:10] LABS: Troponin I 0.61 ng/mL (<0.03)
[2020-06-18] MEDS: Nystatin TOP POWDER 15 GM BTL TOPICAL SCH ×2 (11:35→20:45)
[2020-06-18] MEDS ORDERED: Dextrose 50% Syringe 50 ml 25 GM/50 ML SYRINGE IV PUSH PRN (14:57)
[2020-06-18 15:31] LABS: Troponin I 0.34 ng/mL (<0.03)
[2020-06-18] MEDS: Calcium Carb (TUMS) 500 mg CHEW TAB PO PRN (15:49)
[2020-06-18] MEDS: Warfarin DAILY REMINDER **NOTE FOLLOW UP SCH (17:11)
[2020-06-18] MEDS: Senna TAB 8.6 mg TAB PO SCH (20:39)
[2020-06-18] MEDS: Insulin GLARGINE 100 un/ml 10 ml VIAL SUBCUT SCH (20:40)
[2020-06-18] MEDS: Docusate LIQ 100 MG/10 ML UDC PO SCH (20:40)
[2020-06-19 05:12] LABS: ABS Basophils 0.1 10^3/ul (0-0.2); ABS Lymphocytes 0.3 10^3/ul (1.0-4.8); ABS Monocytes 0.3 10^3/ul (0-0.8); Hematocrit 27 % (42-52); Lymphocyte % 2.3 %; Mean Corpuscular HGB Conc 30 g/dL (31-36); Mean Corpuscular Hemoglobin 26 pg (27-31); Mean Corpuscular Volume 85 fL (80-94); Mean Platelet Volume 7.3 fL (7.4-10.4); Nucleated Red Blood Cells % 0.1; Platelet Count 382 10^3/uL (150-450); Red Blood Count 3.12 10^6 /uL (4.18-5.48); Red Cell Distribution Width 21 % (10-15); White Blood Count 11.8 10^3/uL (3.5-10.8)
[2020-06-19 05:31] LABS: Albumin 3.1 g/dL (3.2-5.2); Albumin/Globulin Ratio 0.9 (1-3); Calcium 7.9 mg/dL (8.6-10.3); EGFR African American 16.8 (>60); EGFR Non-African American 13.9 (>60); Globulin 3.3 g/dL (2-4); INR 6.85 (0.82-1.09); Magnesium 2.2 mg/dL (1.9-2.7); Potassium 4.4 mmol/L (3.5-5.0); Total Bilirubin 0.6 mg/dL (0.2-1.0); Total Protein 6.4 g/dL (6.4-8.9)
[2020-06-19] MEDS: Hydrocortisone INJ 100 MG/2ML 2 ML VIAL IV SCH ×3 (05:57→21:09)
[2020-06-19] MEDS: ZOSYN 3.375 GM Q8H per EXTENDED INFUSION IV SCH ×3 (07:35→23:21)
[2020-06-19] MEDS: Nystatin TOP POWDER 15 GM BTL TOPICAL SCH ×2 (07:38→21:11)
[2020-06-19] MEDS: Saline FLUSH-CENTRAL 10 ML SYRINGE CENT\\PICC SCH ×2 (07:52→21:18)
[2020-06-19] MEDS: Warfarin DAILY REMINDER **NOTE FOLLOW UP SCH (16:44)
[2020-06-19] MEDS: Calcium Carb (TUMS) 500 mg CHEW TAB PO PRN ×2 (18:28→21:09)
[2020-06-19] MEDS: Senna TAB 8.6 mg TAB PO SCH (21:09)
[2020-06-19] MEDS: Docusate LIQ 100 MG/10 ML UDC PO SCH (21:10)
[2020-06-19] MEDS: Insulin GLARGINE 100 un/ml 10 ml VIAL SUBCUT SCH (21:10)
[2020-06-20] MEDS: Hydrocortisone INJ 100 MG/2ML 2 ML VIAL IV SCH ×3 (06:22→20:25)
[2020-06-20] MEDS ORDERED: Albumin Human 25% 12.5 GM/50 ML BTL IV PRN (07:25)
[2020-06-20] MEDS ORDERED: NS 0.9% 100 ml BAG 0 ML ONE (07:39)
[2020-06-20] MEDS: Saline FLUSH-CENTRAL 10 ML SYRINGE CENT\\PICC SCH ×2 (07:49→20:45)
[2020-06-20] MEDS: Heparin 1,000 UNIT/ML 10 ml (10,000 UNITS) CATHLAB/DIALYSIS DIALYSIS ONE ×5 (08:44→13:28)
[2020-06-20 09:43] LABS: INR 5.33 (0.82-1.09)
[2020-06-20 10:16] LABS: ABS Lymphocytes 0.3 10^3/ul (1.0-4.8); ABS Monocytes 0.3 10^3/ul (0-0.8); ABS Neutrophils 12.1 10^3/ul (1.5-7.7); Hematocrit 27 % (42-52); Hemoglobin 8.5 g/dL (14.0-18.0); Lymphocyte % 2.1 %; Mean Corpuscular HGB Conc 31 g/dL (31-36); Mean Corpuscular Hemoglobin 26 pg (27-31); Mean Corpuscular Volume 85 fL (80-94); Mean Platelet Volume 7.9 fL (7.4-10.4); Nucleated Red Blood Cells % 0.2; Platelet Count 391 10^3/uL (150-450); Red Cell Distribution Width 21 % (10-15); White Blood Count 12.8 10^3/uL (3.5-10.8)
[2020-06-20 10:26] LABS: Albumin 3.3 g/dL (3.2-5.2); EGFR African American 14.7 (>60); EGFR Non-African American 12.2 (>60); Globulin 3.4 g/dL (2-4); Potassium 4.5 mmol/L (3.5-5.0); Total Bilirubin 0.6 mg/dL (0.2-1.0); Total Protein 6.7 g/dL (6.4-8.9)
[2020-06-20 11:45] LABS: Hepatitis B Surface Antigen Nonreactive (Nonreactive)
[2020-06-20 12:02] LABS: Hepatitis B Surface Ab Not Immune (Immune)
[2020-06-20] MEDS: ZOSYN 3.375 GM Q8H per EXTENDED INFUSION IV SCH ×2 (12:54→20:45)
[2020-06-20] MEDS: Nystatin TOP POWDER 15 GM BTL TOPICAL SCH ×2 (14:05→20:26)
[2020-06-20] MEDS: Warfarin DAILY REMINDER **NOTE FOLLOW UP SCH (16:50)
[2020-06-20] MEDS: Insulin GLARGINE 100 un/ml 10 ml VIAL SUBCUT SCH (20:24)
[2020-06-20] MEDS: oxyCODONE/Acetamin 5/325 mg TAB PO PRN (20:25)
[2020-06-20] MEDS: Docusate LIQ 100 MG/10 ML UDC PO SCH (20:25)
[2020-06-20] MEDS: Senna TAB 8.6 mg TAB PO SCH (20:26)
[2020-06-21] MEDS: ZOSYN 3.375 GM Q8H per EXTENDED INFUSION IV SCH ×2 (05:11→13:13)
[2020-06-21] MEDS: Saline FLUSH-CENTRAL 10 ML SYRINGE CENT\\PICC SCH ×2 (08:40→20:43)
[2020-06-21] MEDS ORDERED: Hydrocortisone INJ 100 MG/2ML 2 ML VIAL IV ONE (09:00)
[2020-06-21] MEDS: Nystatin TOP POWDER 15 GM BTL TOPICAL SCH ×2 (09:25→21:59)
[2020-06-21 13:18] LABS: INR 5.46 (0.82-1.09)
[2020-06-21] MEDS ORDERED: Heparin *DIALYSIS* ONLY 1,000 UNITS/ML VIAL DIALYSIS ONE (14:37)
[2020-06-21] MEDS ORDERED: Heparin VIAL 10,000 UNITS/ML VIAL (TEN THOUSAND) IV ONE (15:30)
[2020-06-21] MEDS: Warfarin DAILY REMINDER **NOTE FOLLOW UP SCH (16:51)
[2020-06-21 19:30] LABS: Influenza A Molecular Negative (Negative); Influenza B Molecular Negative (Negative)
[2020-06-21] MEDS: oxyCODONE/Acetamin 5/325 mg TAB PO PRN (21:27)
[2020-06-21] MEDS: Senna TAB 8.6 mg TAB PO SCH (21:56)
[2020-06-21] MEDS: Docusate LIQ 100 MG/10 ML UDC PO SCH (21:57)
[2020-06-21] MEDS: Insulin GLARGINE 100 un/ml 10 ml VIAL SUBCUT SCH (22:01)
[2020-06-22 05:35] LABS: ABS Basophils 0.2 10^3/ul (0-0.2); ABS Eosinophils 0.1 10^3/ul (0-0.6); ABS Lymphocytes 0.8 10^3/ul (1.0-4.8); ABS Monocytes 0.5 10^3/ul (0-0.8); ABS Neutrophils 8.2 10^3/ul (1.5-7.7); Eosinophil % 0.7 %; Hematocrit 29 % (42-52); Hemoglobin 8.7 g/dL (14.0-18.0); Lymphocyte % 8.3 %; Mean Corpuscular HGB Conc 31 g/dL (31-36); Mean Corpuscular Hemoglobin 26 pg (27-31); Mean Corpuscular Volume 85 fL (80-94); Mean Platelet Volume 7.2 fL (7.4-10.4); Nucleated Red Blood Cells % 0.2; Platelet Count 400 10^3/uL (150-450); Red Blood Count 3.36 10^6 /uL (4.18-5.48); Red Cell Distribution Width 21 % (10-15); White Blood Count 9.8 10^3/uL (3.5-10.8)
[2020-06-22 05:52] LABS: Calcium 7.5 mg/dL (8.6-10.3); EGFR African American 15.3 (>60); EGFR Non-African American 12.7 (>60); INR 3.86 (0.82-1.09)
[2020-06-22] MEDS ORDERED: Heparin VIAL 10,000 UNITS/ML VIAL (TEN THOUSAND) IV ONE (08:00)
[2020-06-22] MEDS: Heparin 1,000 UNIT/ML 10 ml (10,000 UNITS) CATHLAB/DIALYSIS DIALYSIS ONE ×4 (08:18→12:07)
[2020-06-22] MEDS: oxyCODONE/Acetamin 5/325 mg TAB PO PRN ×2 (13:45→20:42)
[2020-06-22] MEDS: Saline FLUSH-CENTRAL 10 ML SYRINGE CENT\\PICC SCH ×2 (14:31→20:58)
[2020-06-22] MEDS: Nystatin TOP POWDER 15 GM BTL TOPICAL SCH ×2 (14:33→21:36)
[2020-06-22] MEDS: Warfarin DAILY REMINDER **NOTE FOLLOW UP SCH (17:26)
[2020-06-22 17:50] LABS: C Reactive Protein 18.39 mg/L (<8.01)
[2020-06-22] MEDS ORDERED: Polyethylene Glycol 3350 17 GM PACKET PO PRN (18:02)
[2020-06-22] MEDS: Docusate LIQ 100 MG/10 ML UDC PO SCH (21:32)
[2020-06-22] MEDS: Senna TAB 8.6 mg TAB PO SCH (21:33)
[2020-06-22] MEDS: Insulin GLARGINE 100 un/ml 10 ml VIAL SUBCUT SCH (21:37)
[2020-06-23 05:39] LABS: INR 2.38 (0.82-1.09)
[2020-06-23] MEDS: Saline FLUSH-CENTRAL 10 ML SYRINGE CENT\\PICC SCH ×2 (09:47→21:50)
[2020-06-23] MEDS: Nystatin TOP POWDER 15 GM BTL TOPICAL SCH ×2 (09:49→21:50)
[2020-06-23 11:57] LABS: ABS Eosinophils 0.3 10^3/ul (0-0.6); ABS Lymphocytes 0.6 10^3/ul (1.0-4.8); ABS Monocytes 0.4 10^3/ul (0-0.8); ABS Neutrophils 10.1 10^3/ul (1.5-7.7); Eosinophil % 2.8 %; Hematocrit 29 % (42-52); Hemoglobin 8.7 g/dL (14.0-18.0); Lymphocyte % 5.1 %; Mean Corpuscular HGB Conc 30 g/dL (31-36); Mean Corpuscular Hemoglobin 26 pg (27-31); Mean Corpuscular Volume 86 fL (80-94); Mean Platelet Volume 6.9 fL (7.4-10.4); Nucleated Red Blood Cells % 0.2; Platelet Count 402 10^3/uL (150-450); Red Blood Count 3.37 10^6 /uL (4.18-5.48); Red Cell Distribution Width 21 % (10-15); White Blood Count 11.4 10^3/uL (3.5-10.8)
[2020-06-23 12:21] LABS: Albumin 3.3 g/dL (3.2-5.2); Albumin/Globulin Ratio 1.1 (1-3); Calcium 7.7 mg/dL (8.6-10.3); EGFR African American 18.8 (>60); EGFR Non-African American 15.5 (>60); Globulin 3.1 g/dL (2-4); Total Bilirubin 0.9 mg/dL (0.2-1.0); Total Protein 6.4 g/dL (6.4-8.9)
[2020-06-23] MEDS ORDERED: fentaNYL 100 mcg/2 ml 50 MCG/ML VIAL ONE (14:49)
[2020-06-23 17:13] LABS: Body Fluid Source Peritonial Fluid
[2020-06-23] MEDS: Warfarin DAILY REMINDER **NOTE FOLLOW UP SCH (18:10)
[2020-06-23 18:26] LABS: Body Fluid Mono 52 %
[2020-06-23] MEDS: Senna TAB 8.6 mg TAB PO SCH (21:43)
[2020-06-23] MEDS: Insulin GLARGINE 100 un/ml 10 ml VIAL SUBCUT SCH (21:43)
[2020-06-23] MEDS: Docusate LIQ 100 MG/10 ML UDC PO SCH (21:43)
[2020-06-23] MEDS: oxyCODONE/Acetamin 5/325 mg TAB PO PRN (22:01)
[2020-06-24 06:18] LABS: INR 1.6 (0.82-1.09)
[2020-06-24 06:50] LABS: Hepatitis B Surface Antigen Nonreactive (Nonreactive)
[2020-06-24] MEDS: Heparin 1,000 UNIT/ML 10 ml (10,000 UNITS) CATHLAB/DIALYSIS DIALYSIS ONE ×4 (08:30→12:13)
[2020-06-24] MEDS: Saline FLUSH-CENTRAL 10 ML SYRINGE CENT\\PICC SCH ×2 (10:52→19:21)
[2020-06-24] MEDS: Nystatin TOP POWDER 15 GM BTL TOPICAL SCH ×2 (14:01→21:18)
[2020-06-24] MEDS: Warfarin DAILY REMINDER **NOTE FOLLOW UP SCH (17:27)
[2020-06-24] MEDS: Insulin GLARGINE 100 un/ml 10 ml VIAL SUBCUT SCH (21:15)
[2020-06-24] MEDS: Senna TAB 8.6 mg TAB PO SCH (21:16)
[2020-06-24] MEDS: Docusate LIQ 100 MG/10 ML UDC PO SCH (21:17)
[2020-06-25 05:17] LABS: ABS Basophils 0.1 10^3/ul (0-0.2); ABS Eosinophils 0.4 10^3/ul (0-0.6); ABS Lymphocytes 0.7 10^3/ul (1.0-4.8); ABS Monocytes 0.5 10^3/ul (0-0.8); ABS Neutrophils 9.7 10^3/ul (1.5-7.7); Eosinophil % 3.3 %; Hematocrit 28 % (42-52); Hemoglobin 8.6 g/dL (14.0-18.0); Lymphocyte % 5.8 %; Mean Corpuscular HGB Conc 30 g/dL (31-36); Mean Corpuscular Hemoglobin 26 pg (27-31); Mean Corpuscular Volume 85 fL (80-94); Mean Platelet Volume 7.4 fL (7.4-10.4); Platelet Count 392 10^3/uL (150-450); Red Blood Count 3.32 10^6 /uL (4.18-5.48); Red Cell Distribution Width 22 % (10-15); White Blood Count 11.3 10^3/uL (3.5-10.8)
[2020-06-25 05:32] LABS: Albumin 3.2 g/dL (3.2-5.2); Albumin/Globulin Ratio 1.1 (1-3); Calcium 7.6 mg/dL (8.6-10.3); EGFR African American 22.1 (>60); EGFR Non-African American 18.3 (>60); Globulin 2.9 g/dL (2-4); Potassium 3.8 mmol/L (3.5-5.0); Total Bilirubin 0.9 mg/dL (0.2-1.0); Total Protein 6.1 g/dL (6.4-8.9)
[2020-06-25 05:41] LABS: INR 1.53 (0.82-1.09)
[2020-06-25] MEDS: Saline FLUSH-CENTRAL 10 ML SYRINGE CENT\\PICC SCH ×2 (08:09→21:05)
[2020-06-25] MEDS: Nystatin TOP POWDER 15 GM BTL TOPICAL SCH ×2 (08:17→21:08)
[2020-06-25] MEDS: oxyCODONE/Acetamin 5/325 mg TAB PO PRN ×2 (08:20→21:04)
[2020-06-25] MEDS: Calcium Carb (TUMS) 500 mg CHEW TAB PO PRN (11:25)
[2020-06-25] MEDS: Warfarin DAILY REMINDER **NOTE FOLLOW UP SCH (18:28)
[2020-06-25] MEDS: Docusate LIQ 100 MG/10 ML UDC PO SCH (21:04)
[2020-06-25] MEDS: Senna TAB 8.6 mg TAB PO SCH (21:04)
[2020-06-25] MEDS: Insulin GLARGINE 100 un/ml 10 ml VIAL SUBCUT SCH (21:05)
[2020-06-26 05:39] LABS: INR 1.74 (0.82-1.09)
[2020-06-26 09:21] LABS: Hematocrit 28 % (42-52); Hemoglobin 8.7 g/dL (14.0-18.0); Mean Corpuscular HGB Conc 31 g/dL (31-36); Mean Corpuscular Hemoglobin 26 pg (27-31); Mean Corpuscular Volume 86 fL (80-94); Mean Platelet Volume 7.5 fL (7.4-10.4); Platelet Count 408 10^3/uL (150-450); Red Blood Count 3.29 10^6 /uL (4.18-5.48); Red Cell Distribution Width 22 % (10-15); White Blood Count 9.8 10^3/uL (3.5-10.8)
[2020-06-26 09:30] LABS: Calcium 7.7 mg/dL (8.6-10.3); EGFR African American 17.5 (>60); EGFR Non-African American 14.5 (>60); Potassium 4.1 mmol/L (3.5-5.0)
[2020-06-26 10:07] LABS: Microcytosis 2+; Spherocytes 2+
[2020-06-26 10:08] LABS: Polychromasia 3+
[2020-06-26 10:09] LABS: ABS Basophils 0.1 10^3/ul (0-0.2); ABS Eosinophils 0.4 10^3/ul (0-0.6); ABS Lymphocytes 0.8 10^3/ul (1.0-4.8); ABS Monocytes 0.6 10^3/ul (0-0.8); Eosinophil % 3.6 %; Nucleated Red Blood Cells % 0.1
[2020-06-26] MEDS: Nystatin TOP POWDER 15 GM BTL TOPICAL SCH ×2 (10:18→20:46)
[2020-06-26] MEDS: Saline FLUSH-CENTRAL 10 ML SYRINGE CENT\\PICC SCH (11:44)
[2020-06-26] MEDS: Calcium Carb (TUMS) 500 mg CHEW TAB PO PRN (12:10)
[2020-06-26] MEDS: Warfarin DAILY REMINDER **NOTE FOLLOW UP SCH (18:11)
[2020-06-26] MEDS: Senna TAB 8.6 mg TAB PO SCH (20:40)
[2020-06-26] MEDS: Insulin GLARGINE 100 un/ml 10 ml VIAL SUBCUT SCH (20:41)
[2020-06-26] MEDS: Docusate LIQ 100 MG/10 ML UDC PO SCH (20:42)
[2020-06-27 06:00] LABS: ABS Basophils 0.1 10^3/ul (0-0.2); ABS Eosinophils 0.3 10^3/ul (0-0.6); ABS Lymphocytes 0.8 10^3/ul (1.0-4.8); ABS Monocytes 0.6 10^3/ul (0-0.8); ABS Neutrophils 7.7 10^3/ul (1.5-7.7); Hematocrit 28 % (42-52); Hemoglobin 8.7 g/dL (14.0-18.0); Lymphocyte % 8.4 %; Mean Corpuscular HGB Conc 31 g/dL (31-36); Mean Corpuscular Hemoglobin 27 pg (27-31); Mean Corpuscular Volume 86 fL (80-94); Mean Platelet Volume 7.2 fL (7.4-10.4); Nucleated Red Blood Cells % 0.1; Platelet Count 438 10^3/uL (150-450); Red Blood Count 3.27 10^6 /uL (4.18-5.48); Red Cell Distribution Width 22 % (10-15); White Blood Count 9.5 10^3/uL (3.5-10.8)
[2020-06-27 06:10] LABS: INR 1.99 (0.82-1.09)
[2020-06-27 06:17] LABS: Albumin 3.3 g/dL (3.2-5.2); Albumin/Globulin Ratio 1.2 (1-3); Calcium 7.5 mg/dL (8.6-10.3); EGFR African American 14.8 (>60); EGFR Non-African American 12.2 (>60); Globulin 2.8 g/dL (2-4); Potassium 4.2 mmol/L (3.5-5.0); Total Bilirubin 0.9 mg/dL (0.2-1.0); Total Protein 6.1 g/dL (6.4-8.9)
[2020-06-27] MEDS: Heparin 1,000 UNIT/ML 10 ml (10,000 UNITS) CATHLAB/DIALYSIS DIALYSIS ONE ×5 (07:30→11:58)
[2020-06-27] MEDS: Nystatin TOP POWDER 15 GM BTL TOPICAL SCH ×2 (13:12→22:03)
[2020-06-27] MEDS: Warfarin DAILY REMINDER **NOTE FOLLOW UP SCH (18:36)
[2020-06-27] MEDS: Docusate LIQ 100 MG/10 ML UDC PO SCH (21:58)
[2020-06-27] MEDS: Senna TAB 8.6 mg TAB PO SCH (21:59)
[2020-06-27] MEDS: Insulin GLARGINE 100 un/ml 10 ml VIAL SUBCUT SCH (22:03)
[2020-06-28] MEDS ORDERED: Heparin 1,000 UNIT/ML 10 ml (10,000 UNITS) CATHLAB/DIALYSIS DIALYSIS ONE (00:01)
[2020-06-28 05:26] LABS: ABS Basophils 0.1 10^3/ul (0-0.2); ABS Eosinophils 0.2 10^3/ul (0-0.6); ABS Lymphocytes 0.6 10^3/ul (1.0-4.8); ABS Monocytes 0.6 10^3/ul (0-0.8); Eosinophil % 2.8 %; Hematocrit 28 % (42-52); Hemoglobin 8.7 g/dL (14.0-18.0); Lymphocyte % 7.6 %; Mean Corpuscular HGB Conc 31 g/dL (31-36); Mean Corpuscular Hemoglobin 26 pg (27-31); Mean Corpuscular Volume 86 fL (80-94); Mean Platelet Volume 7.1 fL (7.4-10.4); Platelet Count 424 10^3/uL (150-450); Red Blood Count 3.32 10^6 /uL (4.18-5.48); Red Cell Distribution Width 22 % (10-15); White Blood Count 8.5 10^3/uL (3.5-10.8)
[2020-06-28 05:34] LABS: INR 2.29 (0.82-1.09)
[2020-06-28 05:44] LABS: Albumin 3.4 g/dL (3.2-5.2); Albumin/Globulin Ratio 1.2 (1-3); Calcium 7.9 mg/dL (8.6-10.3); EGFR African American 20.1 (>60); EGFR Non-African American 16.6 (>60); Globulin 2.8 g/dL (2-4); Potassium 3.9 mmol/L (3.5-5.0); Total Protein 6.2 g/dL (6.4-8.9)
[2020-06-28] MEDS: Heparin 1,000 UNIT/ML 10 ml (10,000 UNITS) CATHLAB/DIALYSIS DIALYSIS ONE ×4 (08:05→11:43)
[2020-06-28] MEDS: Nystatin TOP POWDER 15 GM BTL TOPICAL SCH (09:00)
[2020-06-28] MEDS: Senna TAB 8.6 mg TAB PO SCH (21:48)
[2020-06-28] MEDS: Insulin GLARGINE 100 un/ml 10 ml VIAL SUBCUT SCH (21:51)
[2020-06-28] MEDS: Warfarin DAILY REMINDER **NOTE FOLLOW UP SCH (21:51)
[2020-06-29] MEDS: Docusate LIQ 100 MG/10 ML UDC PO SCH ×2 (00:08→22:48)
[2020-06-29] MEDS: Nystatin TOP POWDER 15 GM BTL TOPICAL SCH ×3 (00:09→22:48)
[2020-06-29 07:04] LABS: INR 2.18 (0.82-1.09)
[2020-06-29 07:05] LABS: ABS Eosinophils 0.3 10^3/ul (0-0.6); ABS Lymphocytes 0.7 10^3/ul (1.0-4.8); ABS Monocytes 0.6 10^3/ul (0-0.8); ABS Neutrophils 8.3 10^3/ul (1.5-7.7); Eosinophil % 2.9 %; Hematocrit 29 % (42-52); Hemoglobin 9.1 g/dL (14.0-18.0); Lymphocyte % 7.2 %; Mean Corpuscular HGB Conc 31 g/dL (31-36); Mean Corpuscular Hemoglobin 27 pg (27-31); Mean Corpuscular Volume 86 fL (80-94); Mean Platelet Volume 7.5 fL (7.4-10.4); Platelet Count 435 10^3/uL (150-450); Red Cell Distribution Width 22 % (10-15)
[2020-06-29 07:12] LABS: Albumin 3.4 g/dL (3.2-5.2); Calcium 7.9 mg/dL (8.6-10.3); Potassium 4.5 mmol/L (3.5-5.0)
[2020-06-29 07:18] LABS: Albumin/Globulin Ratio 1.1 (1-3); C Reactive Protein 26.92 mg/L (<8.01); EGFR African American 17.1 (>60); EGFR Non-African American 14.1 (>60); Globulin 3.1 g/dL (2-4); Total Protein 6.5 g/dL (6.4-8.9)
[2020-06-29] MEDS: Calcium Carb (TUMS) 500 mg CHEW TAB PO PRN (07:44)
[2020-06-29] MEDS: Heparin 1,000 UNIT/ML 10 ml (10,000 UNITS) CATHLAB/DIALYSIS DIALYSIS ONE ×5 (08:13→12:42)
[2020-06-29] MEDS: Warfarin DAILY REMINDER **NOTE FOLLOW UP SCH (17:29)
[2020-06-29] MEDS: Senna TAB 8.6 mg TAB PO SCH (21:45)
[2020-06-29] MEDS: Insulin GLARGINE 100 un/ml 10 ml VIAL SUBCUT SCH (21:46)
[2020-06-30 05:54] LABS: INR 2.15 (0.82-1.09)
[2020-06-30 08:33] VITALS: BP 116/32
[2020-06-30] MEDS: Calcium Carb (TUMS) 500 mg CHEW TAB PO PRN (10:12)
== END 2020-06-30 10:50 | DRG 871 ==
LOC: ED 11:16 → ICU 14:16 → MEDTELE 06-20 22:17
PROVIDERS: ADMIT Hospitalist; ATTEND Student in an Organized Health Care Education/Training Program

== ENCOUNTER 2021-03-22 09:03 | Inpatient (IN) ==
[2021-03-22] MEDS ORDERED: NS 0.9% 500 ml BAG 500 ML IV ONE (09:32)
[2021-03-22 10:03] LABS: ABS Lymphocytes 0.9 10^3/ul (1.0-4.8); ABS Neutrophils 9.2 10^3/ul (1.5-7.7); ABS Nucleated RBC 0.1 10^3/ul; Eosinophil % 0.4 %; Hematocrit 30 % (42-52); Hemoglobin 9.7 g/dL (14.0-18.0); Lymphocyte % 7.8 %; Mean Corpuscular HGB Conc 32 g/dL (31-36); Mean Corpuscular Hemoglobin 31 pg (27-31); Mean Corpuscular Volume 95 fL (80-94); Nucleated Red Blood Cells % 0.8; Platelet Count 428 10^3/uL (150-450); Red Blood Count 3.15 10^6 /uL (4.18-5.48); Red Cell Distribution Width 16 % (10-15); White Blood Count 11.1 10^3/uL (3.5-10.8)
[2021-03-22 10:19] LABS: Rapid COVID-19 Molecular Undetected (Undetected)
[2021-03-22 10:28] LABS: ALT 15 U/L (7-52); AST 11 U/L (13-39); Albumin 3.9 g/dL (3.2-5.2); Albumin/Globulin Ratio 1.1 (1-3); Alkaline Phosphatase 136 U/L (35-149); Anion Gap 14 mmol/L (2-11); Blood Urea Nitrogen 50 mg/dL (6-24); CO2 Carbon Dioxide 23 mmol/L (22-32); Calcium 9.2 mg/dL (8.6-10.3); Chloride 94 mmol/L (101-111); Globulin 3.4 g/dL (2-4); Glucose 282 mg/dL (70-100); Lipase < 10 U/L (11.0-82.0); Magnesium 2.1 mg/dL (1.9-2.7); Potassium 4.2 mmol/L (3.5-5.0); Sodium 131 mmol/L (135-145); Total Protein 7.3 g/dL (6.4-8.9); eGFR CKD-EPI 11.7 (>60)
[2021-03-22 10:31] LABS: INR >10.00 (0.86-1.15); Troponin I 0.03 ng/mL (<0.03)
[2021-03-22] MEDS ORDERED: Phytonadione SUBCUT/IM Adult 10 MG/ML AMP (IM or SQ not preferred route) IM ONE (11:03)
[2021-03-22] MEDS ORDERED: Diltiazem IV push/loading dose 5 MG/ML 5 ML vial (25 mg) IV SLOW PU ONE (11:05)
[2021-03-22] MEDS ORDERED: Phytonadione IV (Adult) 5 MG in NS 0.9% 50 ML 50 ML IV ONE (12:00)
[2021-03-22] MEDS ORDERED: Norepinephrine 16MCG/ML BAG NS 4,000 MCG/250 ML BAG IV ONE (16:37)
[2021-03-22] MEDS: oxyCODONE/Acetamin 5/325 mg TAB PO ONE (16:39)
[2021-03-22] MEDS: Norepinephrine 16MCG/ML BAG NS 4,000 MCG/250 ML BAG IV SCH (16:40)
[2021-03-22] MEDS ORDERED: Norepinephrine 16MCG/ML BAG NS 4,000 MCG/250 ML BAG IV SCH (17:00)
[2021-03-22 17:19] LABS: Hepatitis B Surface Antigen Nonreactive (Nonreactive)
[2021-03-22 17:37] LABS: Hepatitis B Surface Ab Not Immune (Immune)
[2021-03-22] MEDS: Heparin 1,000 UNIT/ML 10 ml (10,000 UNITS) CATHLAB/DIALYSIS DIALYSIS ONE ×2 (18:37→18:57)
[2021-03-22 20:19] LABS: Troponin I 0.03 ng/mL (<0.03)
[2021-03-23] MEDS: Metoprolol Tartrate 5 mg VIAL 5 ml VIAL (1 mg/ml) IV PRN ×2 (00:33→05:16)
[2021-03-23] MEDS: Norepinephrine 16MCG/ML BAG NS 4,000 MCG/250 ML BAG IV SCH ×3 (02:26→13:46)
[2021-03-23 04:42] LABS: Hematocrit 28 % (42-52); Mean Corpuscular HGB Conc 33 g/dL (31-36); Mean Corpuscular Hemoglobin 30 pg (27-31); Mean Corpuscular Volume 93 fL (80-94); Mean Platelet Volume 7.8 fL (7.4-10.4); Platelet Count 414 10^3/uL (150-450); Red Blood Count 2.97 10^6 /uL (4.18-5.48); Red Cell Distribution Width 16 % (10-15); White Blood Count 11.8 10^3/uL (3.5-10.8)
[2021-03-23 04:47] LABS: INR 1.82 (0.86-1.15)
[2021-03-23 05:00] LABS: Anion Gap 12 mmol/L (2-11); Blood Urea Nitrogen 40 mg/dL (6-24); CO2 Carbon Dioxide 22 mmol/L (22-32); Calcium 8.7 mg/dL (8.6-10.3); Chloride 97 mmol/L (101-111); Glucose 200 mg/dL (70-100); Phosphorus 4.2 mg/dL (2.5-5.0); Sodium 131 mmol/L (135-145); eGFR CKD-EPI 14.9 (>60)
[2021-03-23] MEDS ORDERED: oxyCODONE/Acetamin 5/325 mg TAB ONE (07:50)
[2021-03-23] MEDS ORDERED: oxyCODONE/Acetamin 5/325 mg TAB PO ONE (07:51)
[2021-03-23] MEDS: oxyCODONE/Acetamin 5/325 mg TAB PO ONE (07:51)
[2021-03-23 08:30] LABS: Troponin I 0.04 ng/mL (<0.03)
[2021-03-23] MEDS: Heparin 1,000 UNIT/ML 10 ml (10,000 UNITS) CATHLAB/DIALYSIS DIALYSIS ONE ×2 (08:36→12:28)
[2021-03-23] MEDS ORDERED: Hydrocortisone INJ 100 MG/2ML 2 ML VIAL IV ONE (14:00)
[2021-03-23] MEDS ORDERED: Hydrocortisone INJ 100 MG/2ML 2 ML VIAL IV SCH (14:00)
[2021-03-23] MEDS ORDERED: Piperacillin/Tazobac ADVAN 3.375 GM in NS 0.9% 100 ml BAG 100 ML IV ONE (14:00)
[2021-03-23] MEDS ORDERED: Zosyn per Pharmacy NOTE FOLLOW UP SCH (14:00)
[2021-03-23] MEDS ORDERED: cefTRIAXone 1 gm/50 mL NS BAG 1 GM/50 ML BAG IVPB SCH (14:00)
[2021-03-23] MEDS: Benzocaine/Menthol LOZ PO PRN ×3 (14:06→20:50)
[2021-03-23] MEDS ORDERED: Azithromycin 500 mg/250 ml NS 500 MG/250 ML BAG IVPB SCH (15:00)
[2021-03-23] MEDS: Linezolid 600 MG IVPREMIX(*) 600 MG/300 ML BAG IVPB SCH (15:49)
[2021-03-23] MEDS ORDERED: Warfarin per PHARMACY **NOTE FOLLOW UP SCH (16:00)
[2021-03-23] MEDS: Warfarin DAILY REMINDER **NOTE FOLLOW UP SCH (16:59)
[2021-03-23] MEDS ORDERED: Acetaminophen IV 1 GM/100ML 100 ML IV PRN (17:09)
[2021-03-23] MEDS ORDERED: Acetaminophen IV 1 GM/100ML 100 ML IV ONE (17:12)
[2021-03-23] MEDS: ZOSYN 3.375 GM Q8H per EXTENDED INFUSION IV SCH (18:03)
[2021-03-23] MEDS ORDERED: Insulin GLARGINE 100 un/ml 10 ml VIAL SUBCUT SCH ×2 (21:00)
[2021-03-23 21:59] LABS: Glucose Confirmatory 404 mg/dL (70-100)
[2021-03-23] MEDS: Hydrocortisone INJ 100 MG/2ML 2 ML VIAL IV SCH (22:03)
[2021-03-23] MEDS: Senna TAB 8.6 mg TAB PO SCH (22:03)
[2021-03-24] MEDS: Linezolid 600 MG IVPREMIX(*) 600 MG/300 ML BAG IVPB SCH ×2 (03:15→16:11)
[2021-03-24] MEDS: ZOSYN 3.375 GM Q8H per EXTENDED INFUSION IV SCH ×2 (03:15→12:20)
[2021-03-24] MEDS: Mometasone 110 MCG MDI INH SCH (04:07)
[2021-03-24 04:45] LABS: Hematocrit 24 % (42-52); Mean Corpuscular HGB Conc 33 g/dL (31-36); Mean Corpuscular Hemoglobin 31 pg (27-31); Mean Corpuscular Volume 95 fL (80-94); Mean Platelet Volume 7.6 fL (7.4-10.4); Platelet Count 311 10^3/uL (150-450); Red Blood Count 2.54 10^6 /uL (4.18-5.48); Red Cell Distribution Width 16 % (10-15); White Blood Count 9.4 10^3/uL (3.5-10.8)
[2021-03-24 05:00] LABS: INR 1.63 (0.86-1.15)
[2021-03-24 05:01] LABS: Calcium 8.1 mg/dL (8.6-10.3); Potassium 4.5 mmol/L (3.5-5.0); eGFR CKD-EPI 15.2 (>60)
[2021-03-24] MEDS: Hydrocortisone INJ 100 MG/2ML 2 ML VIAL IV SCH ×3 (05:22→17:46)
[2021-03-24] MEDS: Norepinephrine 16MCG/ML BAG NS 4,000 MCG/250 ML BAG IV SCH (08:29)
[2021-03-24] MEDS: Senna TAB 8.6 mg TAB PO SCH ×2 (08:39→17:42)
[2021-03-24] MEDS ORDERED: Insulin GLARGINE 100 un/ml 10 ml VIAL SUBCUT SCH (09:00)
[2021-03-24] MEDS ORDERED: Insulin GLARGINE 100 un/ml 10 ml VIAL SUBCUT ONE (09:11)
[2021-03-24] MEDS: Benzocaine/Menthol LOZ PO PRN (12:20)
[2021-03-24] MEDS ORDERED: Lidocaine 1% VIAL 10 MG/ML VIAL ONE (13:28)
[2021-03-24] MEDS ORDERED: fentaNYL 100 mcg/2 ml 50 MCG/ML VIAL ONE (13:30)
[2021-03-24] MEDS ORDERED: Midazolam 5 mg/5 ml VIAL 1 mg/ml 5 ml VIAL (5 mg) ONE (13:30)
[2021-03-24] MEDS ORDERED: oxyCODONE/Acetamin 5/325 mg TAB PO PRN (14:25)
[2021-03-24] MEDS ORDERED: oxyCODONE/Acetamin 5/325 mg TAB ONE (14:25)
[2021-03-24] MEDS ORDERED: Heparin 1,000 UNIT/ML 10 ml (10,000 UNITS) CATHLAB/DIALYSIS DIALYSIS ONE (15:00)
[2021-03-24] MEDS: Warfarin DAILY REMINDER **NOTE FOLLOW UP SCH (17:43)
[2021-03-24] MEDS: Insulin GLARGINE 100 un/ml 10 ml VIAL SUBCUT SCH (22:47)
[2021-03-25] MEDS: Benzocaine/Menthol LOZ PO PRN ×3 (01:17→21:28)
[2021-03-25] MEDS: Linezolid 600 MG IVPREMIX(*) 600 MG/300 ML BAG IVPB SCH (03:27)
[2021-03-25 06:16] LABS: Hematocrit 25 % (42-52); Hemoglobin 8.1 g/dL (14.0-18.0); Mean Corpuscular HGB Conc 32 g/dL (31-36); Mean Corpuscular Hemoglobin 31 pg (27-31); Mean Corpuscular Volume 95 fL (80-94); Mean Platelet Volume 7.4 fL (7.4-10.4); Platelet Count 272 10^3/uL (150-450); Red Blood Count 2.66 10^6 /uL (4.18-5.48); Red Cell Distribution Width 16 % (10-15); White Blood Count 9.6 10^3/uL (3.5-10.8)
[2021-03-25 06:40] LABS: Calcium 8.1 mg/dL (8.6-10.3); Potassium 3.7 mmol/L (3.5-5.0); eGFR CKD-EPI 17.1 (>60)
[2021-03-25 06:44] LABS: INR 1.95 (0.86-1.15)
[2021-03-25] MEDS: Hydrocortisone INJ 100 MG/2ML 2 ML VIAL IV SCH (08:33)
[2021-03-25] MEDS: Senna TAB 8.6 mg TAB PO SCH ×2 (09:26→21:28)
[2021-03-25] MEDS: Mometasone 110 MCG MDI INH SCH (16:45)
[2021-03-25] MEDS ORDERED: Warfarin per PHARMACY **NOTE FOLLOW UP SCH (17:00)
[2021-03-25] MEDS ORDERED: Warfarin - No Order Today **NOTE FOLLOW UP ONE (17:00)
[2021-03-25] MEDS: Warfarin DAILY REMINDER **NOTE FOLLOW UP SCH (17:53)
[2021-03-25] MEDS: Insulin GLARGINE 100 un/ml 10 ml VIAL SUBCUT SCH (21:29)
[2021-03-25] MEDS: ZOSYN 3.375 GM Q12H per EXTENDED INFUSION IV SCH (23:44)
[2021-03-26] MEDS: Mometasone 110 MCG MDI INH SCH ×2 (01:09→19:41)
[2021-03-26 04:30] LABS: INR 1.92 (0.86-1.15)
[2021-03-26] MEDS: Senna TAB 8.6 mg TAB PO SCH ×2 (09:07→21:40)
[2021-03-26 10:18] LABS: ABS Basophils 0.1 10^3/ul (0-0.2); ABS Lymphocytes 0.6 10^3/ul (1.0-4.8); ABS Monocytes 0.6 10^3/ul (0-0.8); ABS Neutrophils 8.4 10^3/ul (1.5-7.7); ABS Nucleated RBC 0.1 10^3/ul; Eosinophil % 0.1 %; Hematocrit 26 % (42-52); Hemoglobin 8.5 g/dL (14.0-18.0); Lymphocyte % 6.1 %; Mean Corpuscular HGB Conc 33 g/dL (31-36); Mean Corpuscular Hemoglobin 31 pg (27-31); Mean Corpuscular Volume 96 fL (80-94); Mean Platelet Volume 7.8 fL (7.4-10.4); Platelet Count 290 10^3/uL (150-450); Red Blood Count 2.73 10^6 /uL (4.18-5.48); Red Cell Distribution Width 16 % (10-15); White Blood Count 9.7 10^3/uL (3.5-10.8)
[2021-03-26 10:34] LABS: Albumin 3.7 g/dL (3.2-5.2); Albumin/Globulin Ratio 1.1 (1-3); Calcium 8.1 mg/dL (8.6-10.3); Globulin 3.3 g/dL (2-4); Magnesium 1.9 mg/dL (1.9-2.7); Potassium 4.2 mmol/L (3.5-5.0); Total Bilirubin 0.8 mg/dL (0.2-1.0); eGFR CKD-EPI 12.5 (>60)
[2021-03-26] MEDS: ZOSYN 3.375 GM Q12H per EXTENDED INFUSION IV SCH ×2 (11:27→23:59)
[2021-03-26] MEDS: Benzocaine/Menthol LOZ PO PRN ×2 (14:33→19:42)
[2021-03-26] MEDS ORDERED: Calcium Carb (TUMS) 500 mg CHEW TAB PO PRN (15:43)
[2021-03-26] MEDS: Warfarin DAILY REMINDER **NOTE FOLLOW UP SCH (17:50)
[2021-03-26] MEDS: Fluticasone NASAL SPRAY 50MCG 16 gm SPRAY BTL BOTH NARES SCH (21:39)
[2021-03-26] MEDS: Insulin GLARGINE 100 un/ml 10 ml VIAL SUBCUT SCH (21:40)
[2021-03-27 06:33] LABS: ABS Lymphocytes 0.8 10^3/ul (1.0-4.8); ABS Monocytes 0.9 10^3/ul (0-0.8); ABS Neutrophils 8.2 10^3/ul (1.5-7.7); ABS Nucleated RBC 0.1 10^3/ul; Eosinophil % 0.2 %; Hematocrit 26 % (42-52); Hemoglobin 8.4 g/dL (14.0-18.0); Mean Corpuscular HGB Conc 33 g/dL (31-36); Mean Corpuscular Hemoglobin 31 pg (27-31); Mean Corpuscular Volume 95 fL (80-94); Mean Platelet Volume 7.4 fL (7.4-10.4); Nucleated Red Blood Cells % 1.1; Platelet Count 263 10^3/uL (150-450); Red Blood Count 2.71 10^6 /uL (4.18-5.48); Red Cell Distribution Width 16 % (10-15); White Blood Count 9.9 10^3/uL (3.5-10.8)
[2021-03-27 06:37] LABS: INR 2.12 (0.86-1.15)
[2021-03-27 06:50] LABS: Albumin 3.5 g/dL (3.2-5.2); Albumin/Globulin Ratio 1.1 (1-3); Calcium 7.8 mg/dL (8.6-10.3); Globulin 3.1 g/dL (2-4); Potassium 4.3 mmol/L (3.5-5.0); Total Bilirubin 0.7 mg/dL (0.2-1.0); Total Protein 6.6 g/dL (6.4-8.9); eGFR CKD-EPI 10.4 (>60)
[2021-03-27] MEDS: Senna TAB 8.6 mg TAB PO SCH ×2 (08:04→21:52)
[2021-03-27] MEDS: Fluticasone NASAL SPRAY 50MCG 16 gm SPRAY BTL BOTH NARES SCH (08:10)
[2021-03-27] MEDS ORDERED: Heparin 1,000 UNIT/ML 10 ml (10,000 UNITS) CATHLAB/DIALYSIS DIALYSIS ONE (08:19)
[2021-03-27] MEDS: ZOSYN 3.375 GM Q12H per EXTENDED INFUSION IV SCH (14:11)
[2021-03-27] MEDS: Benzocaine/Menthol LOZ PO PRN (14:11)
[2021-03-27] MEDS: Warfarin DAILY REMINDER **NOTE FOLLOW UP SCH (17:09)
[2021-03-27] MEDS: Mometasone 110 MCG MDI INH SCH (21:49)
[2021-03-27] MEDS: Insulin GLARGINE 100 un/ml 10 ml VIAL SUBCUT SCH (21:51)
[2021-03-28] MEDS: ZOSYN 3.375 GM Q12H per EXTENDED INFUSION IV SCH ×2 (00:42→12:01)
[2021-03-28 06:50] LABS: INR 2.31 (0.86-1.15)
[2021-03-28] MEDS: Fluticasone NASAL SPRAY 50MCG 16 gm SPRAY BTL BOTH NARES SCH (09:01)
[2021-03-28] MEDS: Senna TAB 8.6 mg TAB PO SCH (09:02)
[2021-03-28] MEDS: Benzocaine/Menthol LOZ PO PRN (12:05)
[2021-03-28] MEDS ORDERED: Mometasone 110 MCG MDI INH SCH (19:00)
[2021-03-28 20:32] VITALS: BP 107/37
== END 2021-03-28 16:48 | disposition home health service (06) | DRG 308 ==
LOC: ED 09:03 → SUATTDRO 13:51 → EDHOLD 13:51 → ICU 15:28 → MEDTELE 03-25 16:41
PROVIDERS: ADMIT Internal Medicine; ATTEND Internal Medicine